=== PATIENT | female | born 1985 | race Caucasian/White ===

== ENCOUNTER 2020-03-18 00:49 | Emergency (ER) | payer OTHER ==
[~2020-03-18] VITALS: Ht 172.7 cm; Wt 53.6 kg
[2020-03-18 01:32] LABS: BASO # 0.1 10^3/uL (0.0-0.2); BASO % 0.7 % (0.0-1.0); EOS # 0.5 10^3/uL (0.0-0.5); EOS % 5.2 % (0.0-3.0); HEMATOCRIT 39.2 % (36.0-47.0); HEMOGLOBIN 12.8 g/dl (12.0-15.5); LYMPH # 1.8 10^3/uL (1.5-5.0); LYMPH % 21.2 % (24.0-44.0); MEAN CORPUSCULAR HGB CONC 32.7 g/dl (32.0-36.5); MEAN CORPUSCULAR VOLUME 88.9 fl (80.0-96.0); MONO # 0.5 10^3/uL (0.0-0.8); MONO % 5.6 % (0.0-5.0); NEUTROPHILS # 5.8 10^3/uL (1.5-8.5); PLATELET COUNT, AUTOMATED 242 10^3/uL (150-450); RED BLOOD COUNT 4.41 10^6/uL (4.00-5.40); WHITE BLOOD COUNT 8.6 10^3/uL (4.0-10.0)
[2020-03-18] MEDS ORDERED: oxyCODONE 5MG TAB PO ONE (02:00)
[2020-03-18 03:45] VITALS: BP 119/71
[2020-03-18] MEDS ORDERED: OXYC-517 PO (03:47)
== END 2020-03-18 04:07 | disposition home or self-care (01) ==
LOC: M ED 00:49
DX: O03.4 Incomplete spontaneous abortion without complication (principal); Z88.6 Allergy status to analgesic agent

== ENCOUNTER 2020-08-24 21:31 | Emergency (ER) | payer OTHER ==
[~2020-08-24] VITALS: Ht 172.7 cm; Wt 54.6 kg
[~2020-08-24 21:31] MED LIST: OXYC-517 PO
[2020-08-25 02:28] VITALS: BP 112/69
[2020-08-25] MEDS ORDERED: LIDOCAINE VISCOUS 2% SOLN 15ML UDC SSP ONE (02:40)
[2020-08-25] MEDS ORDERED: MOME50SP NARES (02:53)
[2020-08-25] MEDS ORDERED: LIDO2SO SSP (02:53)
== END 2020-08-25 03:02 | disposition home or self-care (01) ==
LOC: M ED 21:31
DX: O99.511 Diseases of the respiratory system complicating pregnancy, first trimester (principal); Z3A.09 9 weeks gestation of pregnancy; Z88.6 Allergy status to analgesic agent

== ENCOUNTER 2021-03-26 18:22 | Inpatient (IN) | payer OTHER ==
[~2021-03-26] VITALS: Ht 172.7 cm; Wt 64.7 kg
[~2021-03-26 18:22] MED LIST changes: +LIDO2SO SSP; +NASO50SP3 NARES
[2021-03-26] MEDS ORDERED: PRENTAB9 PO (18:43)
[2021-03-26] MEDS ORDERED: HOME MED LIST COMPLETE! XX SCH (18:45)
[2021-03-26 18:47] VITALS: BP 114/71
[2021-03-26] MEDS ORDERED: PENICILLIN G POTASSIUM IV 5 MU in D5W MINI-BAG PLUS 100 ML IV STA (19:23)
[2021-03-26] MEDS ORDERED: OXYTOCIN DRIP 30 UNITS in IV 1 EA IV PRN ×4 (19:25)
[2021-03-26] MEDS ORDERED: OXYTOCIN INJ 10 UNITS/ML VIAL (J2590) IV PRN (19:25)
[2021-03-26] MEDS: LR 1,000 ML IV SCH (19:25)
[2021-03-26] MEDS ORDERED: LACTATED RINGER'S 1000 ML IV ONE (19:25)
[2021-03-26 20:01] LABS: HEMATOCRIT 31.5 % (36.0-47.0); HEMOGLOBIN 9.8 g/dl (12.0-15.5); MEAN CORPUSCULAR HEMOGLOBIN 25.4 pg (27.0-33.0); MEAN CORPUSCULAR HGB CONC 31.1 g/dl (32.0-36.5); MEAN CORPUSCULAR VOLUME 81.6 fl (80.0-96.0); PLATELET COUNT, AUTOMATED 259 10^3/uL (150-450); RED BLOOD COUNT 3.86 10^6/uL (4.00-5.40); WHITE BLOOD COUNT 11.1 10^3/uL (4.0-10.0)
[2021-03-26] MEDS ORDERED: MEASLES,MUMPS,RUBELLA VACCINE INJ (MMR-II) (90707) SC SCH (21:50)
[2021-03-26] MEDS ORDERED: DOCUSATE SODIUM 100MG CAPSULE PO PRN (21:50)
[2021-03-26] MEDS ORDERED: METHYLERGONOVINE MALEATE 0.2 MG TAB PO PRN ×2 (21:50→22:05)
[2021-03-26] MEDS ORDERED: DIBUCAINE 1% OINTMENT 30GM TOP PRN (21:50)
[2021-03-26] MEDS ORDERED: MOM 30ML SUSPENSION UDC PO PRN (21:50)
[2021-03-26] MEDS ORDERED: OXYTOCIN INJ 10 UNITS/ML VIAL (J2590) IV ONE (21:50)
[2021-03-26] MEDS ORDERED: ANUSOL HC CREAM 30GM TOP PRN (21:50)
[2021-03-26] MEDS ORDERED: OXYTOCIN DRIP 30 UNITS in IV 1 EA IV ONE (21:50)
[2021-03-26] MEDS ORDERED: RHOGAM 300 MCG (1500 IU) INJ (J2790) IM SCH (21:50)
[2021-03-26 21:51] VITALS: BP 127/69
[2021-03-26 21:51] LABS: CORD GAS ABE A 0.2; CORD GAS ABE V 0.4; CORD GAS HCO3 A 24.6 MEQ/L; CORD GAS HCO3 V 21.9 MEQ/L; CORD GAS O2 SAT A 39.9 %; CORD GAS O2 SAT V 74.6 %; CORD GAS PCO2 A 39.1 mmHg; CORD GAS PCO2 V 27.8 mmHg; CORD GAS PH A 7.416 UNITS; CORD GAS PH V 7.514 UNITS; CORD GAS PO2 A 16.9 mmHg; CORD GAS PO2 V 26.5 mmHg; CORD GAS SBC A 23.2 MEQ/L; CORD GAS SBC V 24.2 MEQ/L; CORD GAS TCO2 A 25.8 MEQ/L; CORD GAS TCO2 V 22.7 MEQ/L
[2021-03-26 22:06] VITALS: BP 129/74
[2021-03-26 22:21] VITALS: BP 126/78
[2021-03-26 22:36] VITALS: BP 123/75
[2021-03-26 23:20] VITALS: BP 114/70
[2021-03-26] MEDS ORDERED: PENICILLIN G POTASSIUM IV 2.5 MU in IV 1 EA IV SCH (23:48)
[2021-03-27] MEDS: LR 1,000 ML IV SCH ×3 (03:25→19:25)
[2021-03-27 06:00] VITALS: BP 114/58
[2021-03-27 06:59] LABS: HEMOGLOBIN 8.7 g/dl (12.0-15.5); MEAN CORPUSCULAR HEMOGLOBIN 25.5 pg (27.0-33.0); MEAN CORPUSCULAR HGB CONC 31.1 g/dl (32.0-36.5); MEAN CORPUSCULAR VOLUME 82.1 fl (80.0-96.0); PLATELET COUNT, AUTOMATED 220 10^3/uL (150-450); RED BLOOD COUNT 3.41 10^6/uL (4.00-5.40); WHITE BLOOD COUNT 11.7 10^3/uL (4.0-10.0)
[2021-03-27] MEDS: oxyCODONE 5MG TAB PO PRN ×3 (07:32→23:31)
[2021-03-27] MEDS: PRENATAL VITAMINS CHEWABLE TABLET PO SCH (07:32)
[2021-03-27 18:00] VITALS: BP 106/63
[2021-03-28] MEDS: LR 1,000 ML IV SCH (03:25)
[2021-03-28 06:00] VITALS: BP 121/79
[2021-03-28] MEDS: PRENATAL VITAMINS CHEWABLE TABLET PO SCH (08:14)
[2021-03-28] MEDS: oxyCODONE 5MG TAB PO PRN (08:15)
== END 2021-03-28 13:58 | disposition home or self-care (01) | DRG 807 ==
LOC: M LDO 18:22 → M LDI 19:23 → M OBS 23:20
PROVIDERS: ADMIT Obstetrics & Gynecology; ATTEND Obstetrics & Gynecology
PROC: 10E0XZZ Delivery of Products of Conception, External Approach (ICD-10-PCS; principal; 2021-03-26)
PROC: 10907ZC Drainage of Amniotic Fluid, Therapeutic from Products of Conception, Via Natural or Artificial Opening (ICD-10-PCS; 2021-03-26)
DX: O99.824 Streptococcus B carrier state complicating childbirth (principal); Z37.0 Single live birth; Z3A.40 40 weeks gestation of pregnancy

== ENCOUNTER 2021-08-19 17:31 | Emergency (ER) | payer OTHER ==
[~2021-08-19] VITALS: Ht 172.7 cm; Wt 54.5 kg
[~2021-08-19 17:31] MED LIST changes: +PRENTAB9 PO
[2021-08-19] MEDS ORDERED: CETI-24 (17:41)
[2021-08-19 18:27] LABS: BASO % 0.1 % (0.0-1.0); EOS # 0.1 10^3/uL (0.0-0.5); EOS % 0.7 % (0.0-3.0); HEMATOCRIT 40.4 % (36.0-47.0); HEMOGLOBIN 13.2 g/dl (12.0-15.5); LYMPH # 0.5 10^3/uL (1.5-5.0); LYMPH % 5.5 % (24.0-44.0); MEAN CORPUSCULAR HEMOGLOBIN 28.4 pg (27.0-33.0); MEAN CORPUSCULAR HGB CONC 32.7 g/dl (32.0-36.5); MEAN CORPUSCULAR VOLUME 86.9 fl (80.0-96.0); MONO # 0.6 10^3/uL (0.0-0.8); MONO % 6.6 % (2.0-8.0); NEUTROPHILS # 7.6 10^3/uL (1.5-8.5); NEUTROPHILS % 86.6 % (36.0-66.0); PLATELET COUNT, AUTOMATED 254 10^3/uL (150-450); RED BLOOD COUNT 4.65 10^6/uL (4.00-5.40); WHITE BLOOD COUNT 8.8 10^3/uL (4.0-10.0)
[2021-08-19] MEDS ORDERED: NS 1,000 ML IV ONE (18:30)
[2021-08-19 18:47] LABS: ERYTHROCYTE SEDIMENTATION RATE 19 mm/hr (0-20)
[2021-08-19] MEDS ORDERED: VANCOMYCIN HCL 1,000 MG in IV FLUID PLACE HOLDER 1 EA IV ONE (19:25)
[2021-08-19] MEDS ORDERED: VANCOMYCIN HCL 1,000 MG, VIAL MATE ADAPTER 1 EACH in NS 250 ML IV ONE (20:00)
[2021-08-19] MEDS ORDERED: CLEO300C2 PO ×2 (20:28→20:38)
[2021-08-19 22:24] VITALS: BP 101/63
== END 2021-08-19 22:26 | disposition home or self-care (01) ==
LOC: M ED 17:31
DX: O91.23 Nonpurulent mastitis associated with lactation (principal); J06.9 Acute upper respiratory infection, unspecified; F41.9 Anxiety disorder, unspecified; Z88.8 Allergy status to other drugs, medicaments and biological substances; Z86.79 Personal history of other diseases of the circulatory system
CPT/HCPCS: 76642; 80047; 83605; 85025; 85652; 86140; 87040; 87486; 87581; 87633; 87798; 93005; 96374; 99284; J3370